=== PATIENT | male | born 2000 | race Caucasian/White ===

== ENCOUNTER 2024-11-03 01:13 | Emergency (ER) | payer BC ==
[2024-11-03] MEDS: Acetaminophen 500 MG Tab PO ONE (01:33)
[2024-11-03] MEDS: Diphtheria,Pertussis(Acell),Tetanus Vaccine 0.5 ML Syringe IM ONE (01:41)
== END 2024-11-03 02:17 | disposition home or self-care (01) ==
LOC: MW.ED 01:13
DX: S01.81XA Laceration without foreign body of other part of head, initial encounter (principal); Z23 Encounter for immunization; W01.198A Fall on same level from slipping, tripping and stumbling with subsequent striking against other object, initial encounter; Y93.89 Activity, other specified
CPT/HCPCS: 12001; 90471; 90715; 99282; A9270